=== PATIENT | male | born 1955 | race Caucasian/White ===

== ENCOUNTER 2020-10-29 08:40 | Outpatient (CLI) | payer MEDICARE, OTHER, SELFPAY ==
--- NOTE | ~2020-10-29 | XR_ITS ---
XR lumbar spine 2-3V DATE: 10/29/2020 09:04 INDICATION: Chronic lower thoracic and upper lumbar pain TECHNIQUE: AP, lateral, coned lateral lumbosacral views COMPARISON: None FINDINGS: Multilevel degenerative disc disease, moderate at L1-2, severe at L2-3 with prominent left bridging osteophyte, moderate at L3-4, L4-5 and L5-S1. Minimal retrolisthesis at L3-4 and L4-5. No fracture or bone destruction is evident. Included lower thoracic and lumbar pedicles are intact. Sacroiliac joints are normal. Status post cholecystectomy. IMPRESSION: Multilevel degenerative disc disease Reviewed, dictated and finalized at location B.
--- NOTE | ~2020-10-29 | XR_ITS ---
XR thoracic spine 2V DATE: 10/29/2020 09:04 INDICATION: Chronic lower thoracic and upper lumbar pain. Left flank pain. TECHNIQUE: AP, lateral, swimmer views COMPARISON: None FINDINGS: No fracture or dislocation or bone destruction. The thoracic pedicles are intact. Prominent degenerative disease of the cervical spine. Mild degenerative spurring of the upper thoracic spine. Diffuse idiopathic skeletal hyperostosis of t he lower thoracic spine. No fracture or bone destruction is evident. The thoracic pedicles are intact. No paraspinal soft tiss ue thickening. Status post cholecystectomy. IMPRESSION: Prominent degenerative disc disease of the cervical spine Mild degenerative spurring of the upper thoracic spine Diffuse idiopathic skeletal hyperostosis of the lower thoracic spine Reviewed, dictated and finalized at location B.
== END 2020-10-29 08:41 | disposition home or self-care (01) ==
LOC: CHSIMG 08:45
PROVIDERS: PCP Internal Medicine; Visit Provider Internal Medicine
DX: R10.9 Unspecified abdominal pain (principal); M54.9 Dorsalgia, unspecified
CPT/HCPCS: 72070; 72100

== ENCOUNTER 2020-11-03 14:54 | Outpatient (RCR) | payer MEDICARE, OTHER, SELFPAY ==
--- NOTE | 2020-11-03 17:29 | PTOPEVAL ---
Thank you for referring Mushtaq Morfin to [facility].? The patient is scheduled to be seen for therapy? ____x/week for ___ weeks. Please review, sign, date and return this plan of care MERI. I agree with and certify that the following plan of care is medically necessary. Referring Physician Date Admitting Provider: Attending Provider: Klaus Spring MD Referring Provider: *PT Outpatient Evaluation Start: 11/03/20 15:14 Freq: Status: Active Protocol: Document 11/03/20 15:00 [facility] (Rec: 11/03/20 16:03 [facility] [id number]) Therapy Assessment Status Assessment Status Assessment Status Evaluation Evaluation Information Problem Diagnosis LBP/ stenosis Onset 10/29/20 Additional Evaluation Detail oswestry = 34% functionally declined Subjective Information Mushtaq Morfin is a 65 year old Query Text:As Reported By Patient/ man with LBP which he reports Family started in 2005. His back pain is intermittent, but the length of pain present has lasted longer this time than any time before. No radiating pain is reported, and he states that the pain was of insidious onset. He was DC'd from PT in [place] to an [facility] last month. He is currenly taking a steroid dose pack of 21 doses. He has approximately 3 pills left. X rays were recently taken showing DDD. He reports that pain begins in lumbar spine and refers upwards to the right thoracic region. He wishes to return to golfing, but expresses some concern about reinjuring his L hip (a grade 2 lig strain) in additon to experiencing an increase in LBP. He reports needing to change positions from sitting to standing every hour to alleviate pain. He reports minimal pain with ambulation. Prior Level of Function Comments Additional Prior Level of Function He has only golfed 2x since Comments July when he used to golf 4x/week. He currently participates in
--- NOTE | 2020-12-07 09:41 | PCPTNOTE ---
12/07/20 - mr. gleason has not been to therapy since initial evaluation. he will be dc'd from skilled therapy services this date and all progress towards goals will be taken from his most recent evaluation/note.
== END 2020-11-03 16:23 | disposition home or self-care (01) ==
LOC: CHSPT 14:54
PROVIDERS: PCP Internal Medicine; Visit Provider Internal Medicine
DX: M54.5 Low back pain (principal); R26.89 Other abnormalities of gait and mobility
CPT/HCPCS: 97110; 97161

== ENCOUNTER 2020-11-04 07:14 | Outpatient (CLI) | payer MEDICARE, OTHER, SELFPAY ==
--- NOTE | ~2020-11-04 | MR_ITS ---
EXAMINATION: MR lumbar spine wo con DATE: 11/04/2020 12:03 INDICATION: Low back pain. TECHNIQUE: Magnetic resonance imaging (MRI) of the lumbar spine was performed without intravenous con trast. Sequences included sagittal T2-weighted FSE, sagittal T2-weighted FS FSE, and sagittal T1-weig hted FSE. The patient could not tolerate further imaging. COMPARISON: Lumbar spine radiographs 10/29/2020 FINDINGS: There is 3 mm retrolisthesis of L4 on L5. There is mild chronic anterior wedging of L4 vert ebral body. There is interbody fusion at L2-L3. There is moderately decreased disc height at L4-L5 an d L5-S1 with endplate remodeling. The distal spinal cord signal intensity is normal. The conus medull gelacio is at L1. The following disc levels are specifically discussed: L1-L2: The disc does not extend beyond the endplate margin. There is severe left facet joint osteoart hritis. There is mild left neural foraminal stenosis. There is no central canal stenosis. L2-L3: There is a right foraminal protrusion. There is no facet joint hypertrophy. There is mild righ t neural foraminal stenosis. There is no central canal stenosis. L3-L4: The disc is bulging and has an annular fissure. There is mild bilateral facet joint osteoarthr itis. There is mild bilateral neural foraminal stenosis. There is mild central canal stenosis. L4-L5: The disc is bulging and has an annular fissure. There is moderate right and severe left facet joint osteoarthritis. There is moderate bilateral neural foraminal stenosis. There is mild central ca nal stenosis. L5-S1: The disc is bulging. There is severe bilateral facet joint osteoarthritis. There is moderate b ilateral neural foraminal stenosis. There is mild central canal stenosis. IMPRESSION: 1. Moderate lumbar spondylosis. Reviewed, dictated and finalized at location B.
== END 2020-11-04 07:15 | disposition home or self-care (01) ==
LOC: CHSIMG 07:17
PROVIDERS: PCP Internal Medicine; Visit Provider Internal Medicine
DX: M54.5 Low back pain (principal)
CPT/HCPCS: 72148

== ENCOUNTER 2022-03-17 01:56 | Day surgery (SDC) | payer MEDICARE, OTHER, SELFPAY ==
[2022-03-01 13:34] VITALS: BMI 28.7
[2022-03-17 07:55] VITALS: BP 127/86; PULSE 77; RESP 18; TEMP 36.4; O2SAT 100
[2022-03-17] MEDS: LACTATED RINGERS 1,000 ML 150 ML IV CONT (08:07)
--- NOTE | 2022-03-17 08:17 | P.PNAN_ITS ---
Anes - Initial Pre Proc Eval Procedure: Operation Date: 03/17/22 08:30 Proposed Procedures p Esophagogastroduodenoscopy & Colonoscopy - Chito Do DO Date/Time: 03/17/22 08:17 Surgeon: Chito Do DO Pre Op Diagnosis: change bowel movements, dypepsia, fam hx colon ca Patient Data Age: 66 Gender: M Height: 1.8 m Weight: 94.9 kg Last Vital Signs Temp 97.5 F L 03/17/22 07:55 Pulse 77 03/17/22 07:55 Resp 18 03/17/22 07:55 BP 127/86 03/17/22 07:55 Pulse Ox 100 03/17/22 07:55 O2 Del Method Room Air 03/17/22 07:55 Allergies Allergy/AdvReac Type Severity Reaction Status Date / Time No Known Allergies Allergy Verified 03/17/22 07:54 Home Medications Medication Instructions Recorded Confirmed Type ascorbic acid (vitamin C) 1,000 mg 1 g PO DAILY 03/01/22 03/01/22 History tablet aspirin 81 mg tablet 81 mg PO DAILY 03/01/22 03/01/22 History celecoxib 200 mg capsule (Celebrex) 200 mg PO BID PRN Pain 03/01/22 03/01/22 History cholecalciferol (vitamin D3) 25 25 mcg PO DAILY 03/01/22 03/01/22 History mcg (1,000 unit) tablet (Vitamin D3) coQ10 (ubiquinol) 200 mg capsule 200 mg PO DAILY 03/01/22 03/01/22 History finasteride 1 mg tablet 1 mg PO DAILY 03/01/22 03/01/22 History glucosamine sulfate 750 mg tablet 1,500 mg PO DAILY 03/01/22 03/01/22 History krill oil 500 mg capsule 500 mg PO DAILY 03/01/22 03/01/22 History lisinopril 10 mg tablet 10 mg PO DAILY 03/01/22 03/01/22 History magnesium 200 mg tablet 400 mg PO DAILY 03/01/22 03/01/22 History rosuvastatin 20 mg tablet 20 mg PO DAILY 03/01/22 03/01/22 History tumeric 100 mg-reza 150 mg-olive 1 cap PO DAILY 03/01/22 03/01/22 History 50 mg-oreg 150 mg-caprylate capsule zinc 100 mg tablet 100 mg PO DAILY 03/01/22 03/01/22 History Patient hx anesthesia problems: none Family hx anesthesia problems: none Results Review: All pre-operative results and documents have been reviewed as part of the pre- operative evaluation. [facility] Past Medical History Medical History Arthritis of knee, left Arthritis of knee, right Social History Social History (System 01/28/22 @ 10:08 by Wilmer Rico) Smoking status: Former smoker Tobacco type: smokeless tobacco Smokeless tobacco user: chewing tobacco Alcohol intake: current Substance use type: does not use Living arrangements: with family Spiritual care concerns: No Anes - Eval Final PreProcedure Day of Procedure 03/17/22 08:17 Patient weight: normal Heart: regular rate and rhythm Lungs: clear to auscultation Airway: Mallampati scale class II Neurological: alert and oriented Last oral intake: >/= 8 hours ASA classification: III Emergent: no Anesthetic plan: proceed Anesthesia type and monitoring: general GIVS and standard monitoring Results Review: All pre-operative results and documents have been reviewed as part of the pre- operative evaluation. Informed Consent: The patient's anesthetic plan and its attendant risks and benefits were discussed with the patient/family/POA. Questions were solicited and answers provided to the satisfaction of the patient/family/POA.
--- NOTE | 2022-03-17 08:46 | PM.IMHP ---
H&P: HPI History of Present Illness Date/Time: 03/17/22 08:46 Chief Complaint: dyspepsia, family history of colon cancer Narrative: this is a 66-year-old man presents for EGD and colonoscopy. He has some occasional acid reflux. He also has a family history of colon cancer with 2 uncles. He denies any hematochezia or melena. He last had a colonoscopy 5 years ago which was normal. Review of Systems Review of Systems: All systems reviewed & are unremarkable except as noted in HPI and below Constitutional: Constitutional: Denies chills, Denies fever(s), Denies headache(s) and Denies weight loss Eyes: Eyes: Denies change in vision ENT: Denies dizziness, Denies headache(s), Denies neck mass and Denies throat swelling Cardiovascular: Cardiovascular: Denies chest pain, Denies lightheadedness and Denies dyspnea Respiratory: Respiratory: Denies cough, Denies dyspnea and Denies wheezing Gastrointestinal: Gastrointestinal: Denies abdominal pain, Denies change in bowel habits, Denies nausea and Denies vomiting Genitourinary: Genitourinary: Denies hematuria and Denies dysuria Musculoskeletal: Musculoskeletal: Reports as per HPI Integumentary/Breasts: Skin/Breast: Reports as per HPI Neurologic: Denies dizziness and Denies headache(s) Allergic/Immunologic: Allergic/Immunologic: Denies throat swelling and Denies wheezing [facility] Past Medical History Medical History Arthritis of knee, left Arthritis of knee, right Social History Social History (System 01/28/22 @ 10:08 by Wilmer Rico) Smoking status: Former smoker Tobacco type: smokeless tobacco Smokeless tobacco user: chewing tobacco Alcohol intake: current Substance use type: does not use Living arrangements: with family Spiritual care concerns: No Meds Home Medications and Allergies Home Medications Medication Instructions Recorded Confirmed Type ascorbic acid (vitamin C) 1,000 mg 1 g PO DAILY 03/01/22 03/01/22 History tablet aspirin 81 mg tablet 81 mg PO DAILY 03/01/22 03/01/22 History celecoxib 200 mg capsule (Celebrex) 200 mg PO BID PRN Pain 03/01/22 03/01/22 History cholecalciferol (vitamin D3) 25 25 mcg PO DAILY 03/01/22 03/01/22 History mcg (1,000 unit) tablet (Vitamin D3) coQ10 (ubiquinol) 200 mg capsule 200 mg PO DAILY 03/01/22 03/01/22 History finasteride 1 mg tablet 1 mg PO DAILY 03/01/22 03/01/22 History glucosamine sulfate 750 mg tablet 1,500 mg PO DAILY 03/01/22 03/01/22 History krill oil 500 mg capsule 500 mg PO DAILY 03/01/22 03/01/22 History lisinopril 10 mg tablet 10 mg PO DAILY 03/01/22 03/01/22 History magnesium 200 mg tablet 400 mg PO DAILY 03/01/22 03/01/22 History rosuvastatin 20 mg tablet 20 mg PO DAILY 03/01/22 03/01/22 History tumeric 100 mg-reza 150 mg-olive 1 cap PO DAILY 03/01/22 03/01/22 History 50 mg-oreg 150 mg-caprylate capsule zinc 100 mg tablet 100 mg PO DAILY 03/01/22 03/01/22 History Allergies Allergy/AdvReac Type Severity Reaction Status Date / Time No Known Allergies Allergy Verified 03/17/22 07:54 Vital Signs Vital Signs - 24 hr 03/17/22 07:55 Temperature 36.4 C L Pulse Rate 77 Respiratory Rate 18 Blood Pressure 127/86 Pulse Oximetry 100 Oxygen Delivery Room Air Exam Const: General: no acute distress and alert Orientation/consciousness: patient oriented x3 HENMT: Head: normocephalic and atraumatic Ears: hearing grossly normal bilaterally Face/Nose/Sinus: Normal nares present Mouth: Yes Normal oral and palatal mucosa present Eyes: Periorbital: periorbital findings normal Sclera: sclerae normal EOM: EOMs intact bilaterally Neck: Neck: normal visual inspection, no lymphadenopathy and trachea midline Chest: Chest palpation & inspection: normal inspection of the chest Resp: Effort & Inspection: normal respiratory effort Auscultation: clear to auscultation bilaterally Cardio: Jugular venous distension: no JV
--- NOTE | 2022-03-17 09:02 | SUR.OPER ---
EGD END AT 912. COLONOSCOPY START AT 919.
[2022-03-17 09:40] VITALS: BP 116/70; PULSE 74; RESP 20; O2SAT 97
[2022-03-17 09:50] VITALS: BP 110/76; PULSE 66; RESP 18; O2SAT 100
[2022-03-17 10:00] VITALS: BP 122/78; PULSE 68; RESP 19; O2SAT 100
== END 2022-03-17 10:13 | disposition home or self-care (01) ==
PROVIDERS: PCP Internal Medicine; Visit Provider Surgery
PROC: 0DJ08ZZ Inspection of Upper Intestinal Tract, Via Natural or Artificial Opening Endoscopic (ICD-10-PCS; CPT 43235; principal; 2022-03-17 08:30)
DX: Z12.11 Encounter for screening for malignant neoplasm of colon (principal); K22.70 Barrett's esophagus without dysplasia; Z80.0 Family history of malignant neoplasm of digestive organs; K21.9 Gastro-esophageal reflux disease without esophagitis; Z79.82 Long term (current) use of aspirin; K57.30 Diverticulosis of large intestine without perforation or abscess without bleeding; K30 Functional dyspepsia; K25.3 Acute gastric ulcer without hemorrhage or perforation; M19.90 Unspecified osteoarthritis, unspecified site; Z87.891 Personal history of nicotine dependence; R19.4 Change in bowel habit
CPT/HCPCS: 43239; G0105; 87081; 88305; 88342; J2704; J7120

== ENCOUNTER 2022-12-22 00:44 | Day surgery (SDC) | payer MEDICARE, OTHER, SELFPAY ==
[2022-11-15 14:38] VITALS: BMI 28.0
[2022-12-22 06:55] VITALS: BP 121/81; PULSE 63; RESP 18; TEMP 36.3; O2SAT 100; BMI 28.1
[2022-12-22] MEDS: LACTATED RINGERS 1,000 ML 150 ML IV CONT (07:06)
--- NOTE | 2022-12-22 07:58 | WPDANESEPPF ---
Anes - Initial Pre Proc Eval Procedure: Operation Date: 12/22/22 08:00 Proposed Procedures p Esophagogastroduodenoscopy - Chito Do DO Date/Time: 12/22/22 07:58 Surgeon: Chito Do DO Pre Op Diagnosis: Gastritis Patient Data Age: 67 Gender: M Height: 1.8 m Weight: 91.6 kg Last Vital Signs Temp 97.3 F L 12/22/22 06:55 Pulse 63 12/22/22 06:55 Resp 18 12/22/22 06:55 BP 121/81 12/22/22 06:55 Pulse Ox 100 12/22/22 06:55 O2 Del Method Room Air 12/22/22 06:55 Allergies Allergy/AdvReac Type Severity Reaction Status Date / Time No Known Allergies Allergy Verified 03/17/22 07:54 Home Medications Medication Instructions Recorded Confirmed Type ascorbic acid (vitamin C) 1,000 mg 1 g PO DAILY 03/01/22 11/15/22 History tablet aspirin 81 mg tablet 81 mg PO DAILY 03/01/22 11/15/22 History celecoxib 200 mg capsule (Celebrex) 200 mg PO BID PRN Pain 03/01/22 11/15/22 History cholecalciferol (vitamin D3) 25 25 mcg PO DAILY 03/01/22 11/15/22 History mcg (1,000 unit) tablet (Vitamin D3) coQ10 (ubiquinol) 200 mg capsule 200 mg PO DAILY 03/01/22 11/15/22 History finasteride 1 mg tablet 1 mg PO DAILY 03/01/22 11/15/22 History glucosamine sulfate 750 mg tablet 1,500 mg PO DAILY 03/01/22 11/15/22 History krill oil 500 mg capsule 500 mg PO DAILY 03/01/22 11/15/22 History lisinopril 10 mg tablet 10 mg PO DAILY 03/01/22 11/15/22 History magnesium 200 mg tablet 400 mg PO DAILY 03/01/22 11/15/22 History rosuvastatin 20 mg tablet 20 mg PO DAILY 03/01/22 11/15/22 History tumeric 100 mg-reza 150 mg-olive 1 cap PO DAILY 03/01/22 11/15/22 History 50 mg-oreg 150 mg-caprylate capsule zinc 100 mg tablet 100 mg PO DAILY 03/01/22 11/15/22 History omeprazole 20 mg capsule,delayed 20 mg PO DAILY #30 caps 04/07/22 11/15/22 Rx release calcium polycarbophil 625 mg 1,250 mg PO DAILY 11/15/22 11/15/22 History tablet (FiberCon) testosterone enanthate 75 mg/0.5 75 mg subcut WEEKLY 11/15/22 11/15/22 History mL subcutaneous auto-injector (Xyosted) Patient hx anesthesia problems: none Family hx anesthesia problems: none Results Review: All pre-operative results and documents have been reviewed as part of the pre-operative evaluation. [facility] Past Medical History Medical History Arthritis of knee, left Arthritis of knee, right Social History Social History (System 01/28/22 @ 10:08 by Wilmer Rico) Smoking status: Never smoker Tobacco type: smokeless tobacco Smokeless tobacco user: chewing tobacco Alcohol intake: current Drinks per week: 10 Substance use type: does not use Living arrangements: with family Spiritual care concerns: No Anes - Eval Final PreProcedure Day of Procedure 12/22/22 07:58 Patient weight: normal Heart: regular rate and rhythm Lungs: clear to auscultation Airway: Mallampati scale class II Neurological: alert and oriented Last oral intake: >/= 8 hours ASA classification: III Emergent: no Anesthetic plan: proceed Anesthesia type and monitoring: general GIVS and standard monitoring Results Review: All pre-operative results and documents have been reviewed as part of the pre-operative evaluation. Informed Consent: The patient's anesthetic plan and its attendant risks and benefits were discussed with the patient/family/POA. Questions were solicited and answers provided to the satisfaction of the patient/family/POA.
--- NOTE | 2022-12-22 08:03 | PM.IMHP ---
H&P: HPI History of Present Illness Date/Time: 12/22/22 08:03 Chief Complaint: Guallpa's esophagitis Narrative: This is a 67-year-old man who presents for a follow-up EGD. He had an EGD last year which showed evidence of a gastric ulcer and esophagitis. Biopsy showed evidence of Guallpa's esophagitis. He reports minimal if any heartburn or acid reflux. He denies any other changes. Review of Systems Review of Systems: All systems reviewed & are unremarkable except as noted in HPI and below Constitutional: Constitutional: Denies chills, Denies fever(s), Denies headache(s) and Denies weight loss Eyes: Eyes: Denies change in vision ENT: Denies dizziness, Denies headache(s), Denies neck mass and Denies throat swelling Cardiovascular: Cardiovascular: Denies chest pain, Denies lightheadedness and Denies dyspnea Respiratory: Respiratory: Denies cough, Denies dyspnea and Denies wheezing Gastrointestinal: Gastrointestinal: Denies abdominal pain, Denies change in bowel habits, Denies nausea and Denies vomiting Genitourinary: Genitourinary: Denies hematuria and Denies dysuria Musculoskeletal: Musculoskeletal: Reports as per HPI Integumentary/Breasts: Skin/Breast: Reports as per HPI Neurologic: Denies dizziness and Denies headache(s) Allergic/Immunologic: Allergic/Immunologic: Denies throat swelling and Denies wheezing [facility] Past Medical History Medical History Arthritis of knee, left Arthritis of knee, right Social History Social History (System 01/28/22 @ 10:08 by Wilmer Rico) Smoking status: Never smoker Tobacco type: smokeless tobacco Smokeless tobacco user: chewing tobacco Alcohol intake: current Drinks per week: 10 Substance use type: does not use Living arrangements: with family Spiritual care concerns: No Meds Home Medications and Allergies Home Medications Medication Instructions Recorded Confirmed Type ascorbic acid (vitamin C) 1,000 mg 1 g PO DAILY 03/01/22 11/15/22 History tablet aspirin 81 mg tablet 81 mg PO DAILY 03/01/22 11/15/22 History celecoxib 200 mg capsule (Celebrex) 200 mg PO BID PRN Pain 03/01/22 11/15/22 History cholecalciferol (vitamin D3) 25 25 mcg PO DAILY 03/01/22 11/15/22 History mcg (1,000 unit) tablet (Vitamin D3) coQ10 (ubiquinol) 200 mg capsule 200 mg PO DAILY 03/01/22 11/15/22 History finasteride 1 mg tablet 1 mg PO DAILY 03/01/22 11/15/22 History glucosamine sulfate 750 mg tablet 1,500 mg PO DAILY 03/01/22 11/15/22 History krill oil 500 mg capsule 500 mg PO DAILY 03/01/22 11/15/22 History lisinopril 10 mg tablet 10 mg PO DAILY 03/01/22 11/15/22 History magnesium 200 mg tablet 400 mg PO DAILY 03/01/22 11/15/22 History rosuvastatin 20 mg tablet 20 mg PO DAILY 03/01/22 11/15/22 History tumeric 100 mg-reza 150 mg-olive 1 cap PO DAILY 03/01/22 11/15/22 History 50 mg-oreg 150 mg-caprylate capsule zinc 100 mg tablet 100 mg PO DAILY 03/01/22 11/15/22 History omeprazole 20 mg capsule,delayed 20 mg PO DAILY #30 caps 04/07/22 11/15/22 Rx release calcium polycarbophil 625 mg 1,250 mg PO DAILY 11/15/22 11/15/22 History tablet (FiberCon) testosterone enanthate 75 mg/0.5 75 mg subcut WEEKLY 11/15/22 11/15/22 History mL subcutaneous auto-injector (Xyosted) Allergies Allergy/AdvReac Type Severity Reaction Status Date / Time No Known Allergies Allergy Verified 03/17/22 07:54 Vital Signs Vital Signs - 24 hr 12/22/22 06:55 Temperature 36.3 C L Pulse Rate 63 Respiratory Rate 18 Blood Pressure 121/81 Pulse Oximetry 100 Oxygen Delivery Room Air Exam Const: General: no acute distress and alert Orientation/consciousness: patient oriented x3 HENMT: Head: normocephalic and atraumatic Ears: hearing grossly normal bilaterally Face/Nose/Sinus: Normal nares present Mouth: Yes Normal oral and palatal mucosa present Eyes: Periorbital: periorbital findings normal Sclera: scl
[2022-12-22 08:27] VITALS: BP 93/65; PULSE 72; RESP 18; O2SAT 100
[2022-12-22 08:37] VITALS: BP 98/55; PULSE 68; RESP 18; O2SAT 100
[2022-12-22 08:57] VITALS: BP 109/78; PULSE 66; RESP 18; O2SAT 100
== END 2022-12-22 08:55 | disposition home or self-care (01) ==
PROVIDERS: PCP Internal Medicine; Visit Provider Surgery
PROC: 0DJ08ZZ Inspection of Upper Intestinal Tract, Via Natural or Artificial Opening Endoscopic (ICD-10-PCS; CPT 43235; principal; 2022-12-22 08:00)
DX: Z09 Encounter for follow-up examination after completed treatment for conditions other than malignant neoplasm (principal); K31.7 Polyp of stomach and duodenum; Z87.19 Personal history of other diseases of the digestive system; Z79.82 Long term (current) use of aspirin; F17.220 Nicotine dependence, chewing tobacco, uncomplicated; Z79.890 Hormone replacement therapy
CPT/HCPCS: 43239; 88305; J2704; J7120

== ENCOUNTER 2024-12-11 09:37 | Outpatient (CLI) | payer MEDICARE, OTHER, SELFPAY ==
--- OUTSIDE RECORDS SUMMARY | 2024-12-11 09:49 | XMS_ITS | Patient Health Record ---
Author Organization [facility] Address [address] [facility] [address] [place] [address] Care Team Providers Care Paper Testing Supervisor Name Role Phone MicheleLois Primary Care Provider Karla Mills Unavailable [phone] Allergies Allergen (clinical drug ingredient) Drug/Non Drug Allergy documented on EMR Reaction Allergy Type Onset Date Status Penicillin upset stomach Drug Allergy Ac tive Results Component Value Reference Range Flag Notes Fecal Immunoassay Test (FIT) (Commercial) Reviewed date:11/12/2024 06:23:49 PM Interpretation: Performing Lab:[facility]-[id number] Mike Brooksca, [id number] DR. Terri Barr Notes/Report: FASTING: UNKNOWN FECAL GLOBIN BY IMMUNOCHEMISTRY SEE NOTE FECAL GLOBIN BY IMMUNOCHEMISTRY Micro Number: [id number] Test Status: Final Specimen Source: Insu () fobt test card Specimen Quality: Adequate Fecal Globin: Not Detected Reference Range: Not Detected NOTE: Approved collection includes sample of toilet water adjacent to stool. Other methods of collection such as stool transferred from diaper, bedpan, or commode to toilet water may lead to inaccurate results. TSH W/REFLEX TO FT4 Reviewed date:07/18/2024 09:04:18 AM Interpretation: Performing Lab:[facility]-Oybac1727 Sarah Wilson [id number] Dennis Vines MD Notes/Report: 0; 0; 0; 0; 0; 0 FASTING:YES FASTING: YES TSH W/REFLEX TO FT4 1.89 0.40-4.50 mIU/L N PSA, Total Reviewed date:07/18/2024 09:04:18 AM Interpretation: Performing Lab:[facility]-Nrrdw2130 Sarah Wilson [id number] Dennis Vines MD Notes/Report: 0; 0; 0; 0; 0; 0 FASTING:YES FASTING: YES PSA, TOTAL 0.91 < OR = 4.00 ng/mL N The total PSA value from this assay system is standardized against the WHO standard. The test result will be approximately 20% lower when compared to the equimolar-standardized total PSA (Kenney Scipio). Comparison of serial PSA results should be interpreted with this fact in mind. This test was performed using the Siemens chemiluminescent method. Values obtained from different assay methods cannot be used interchangeably. PSA levels, regardless of value, should not be interpreted as absolute evidence of the presence or absence of disease. Lipid Panel Reviewed date:07/18/2024 09:04:18 AM Interpretation: Performing Lab:[facility] CarLakhwinderXxryn6209 Sarah Wilson [id number] Dennis Vines MD Notes/Report: 0; 0; 0; 0; 0; 0 FASTING:YES FASTING: YES CHOLESTEROL, TOTAL 130 <200 mg/dL N HDL CHOLESTEROL 53 > OR = 40 mg/dL N TRIGLYCERIDES 153 <150 mg/dL H LDL-CHOLESTEROL 53 N Reference range: <100 Desirable range <100 mg/dL for primary prevention; <70 mg/dL for patients with CHD or diabetic patients with > or = 2 CHD risk factors. LDL-C is now calculated using the Ang-Lupe calculation, which is a validated novel method providing better accuracy than the Friedewald equation in the estimation of LDL-C. Ang SS et al. GISELL. 2013;310(19): 1248-7693 (http://education.[employer]E Systems/faq/WDK680) CHOL/HDLC RATIO 2.5 <5.0 (calc) N NON HDL CHOLESTEROL 77 <130 mg/dL (calc) N For patients with diabetes plus 1 major ASCVD risk factor, treating to a non-HDL-C goal of <100 mg/dL (LDL-C of <70 mg/dL) is considered a therapeutic option. HEMOGLOBIN A1c Reviewed date:07/18/2024 09:04:18 AM Interpretation: Performing Lab:[facility]-Shojc4445 Sarah Wilson, [id number] Dennis Vines MD Notes/Report: 0; 0; 0; 0; 0; 0 FASTING:YES FASTING: YES HEMOGLOBIN A1c 5.4 <5.7 % of total Hgb N For the purpose of screening for the presence of diabetes: <5.7% Consistent with the absence of diabetes 5.7-6.4% Consistent with increased risk for diabetes (prediabetes) > or =6.5% Consistent with diabetes This assay result is consistent with a decreased risk of diabetes. Currently, no consensus exists regarding use of hemoglobin A1c for diagnosis of diabetes in children. According to [place] [employer] Association (ADA) guidelines, hemoglobin A1c <7.0% represents optimal control in non- diabetic patients. Different metrics may apply to specific patient populations. Standards of Medical Care in Diabetes(ADA). [facility] Reviewed date:07/18/2024 09:04:18 AM Interpretation: Performing Lab:[facility]-Qwmwi7698 Sarah Wilson, [id number] Dennis Vines MD Notes/Report: 0; 0; 0; 0; 0; 0 FASTING:YES FASTING: YES GLUCOSE 95 65-99 mg/dL N Fasting reference interval UREA NITROGEN (BUN) 17 7-25 mg/dL N CREATININE 1.21 0.70-1.28 mg/dL N EGFR 64 > OR = 60 mL/min/1.73m2 N BUN/CREATININE RATIO SEE NOTE: 6-22 (calc) Not Reported: BUN and Creatinine are within reference range. SODIUM 136 135-146 mmol/L N POTASSIUM 4.7 3.5-5.3 mmol/L N CHLORIDE 98 98-110 mmol/L N CARBON DIOXIDE 30 20-32 mmol/L N CALCIUM 10.0 8.6-10.3 mg/dL N PROTEIN, TOTAL 7.1 6.1-8.1 g/dL N ALBUMIN 4.5 3.6-5.1 g/dL N GLOBULIN 2.6 1.9-3.7 g/dL (calc) N ALBUMIN/GLOBULIN RATIO 1.7 1.0-2.5 (calc) N BILIRUBIN, TOTAL 0.7 0.2-1.2 mg/dL N ALKALINE PHOSPHATASE 47 35-144 U/L N AST 20 10-35 U/L N ALT 22 9-46 U/L N CBC w/Differential (Peripher al Smear) Reviewed date:07/18/2024 09:04:18 AM Interpretation: Performing Lab:[facility]-[id number] Sarah Sylwia Wilson, [id number] Dennis Vines MD Notes/Report: 0; 0; 0; 0; 0; 0 FASTING:YES FASTING: YES WHITE BLOOD CELL COUNT 4.6 3.8-10.8 Thousand/uL N RED BLOOD CELL COUNT 5.71 4.20-5.80 Million/uL N HEMOGLOBIN 17.0 13.2-17.1 g/dL N HEMATOCRIT 51.9 38.5-50.0 % H MCV 90.9 80.0-100.0 fL N MCH 29.8 27.0-33.0 pg N MCHC 32.8 32.0-36.0 g/dL N For adults, a slight decrease in the calculated MCHC value (in the range of 30 to 32 g/dL) is most likely not clinically significant; however, it should be interpreted with caution in correlation with other red cell parameters and the patient's clinical condition. RDW 14.2 11.0-15.0 % N PLATELET COUNT 224 140-400 Thousand/uL N MPV 9.2 7.5-12.5 fL N ABSOLUTE NEUTROPHILS 3353 0846-9057 cells/uL N ABSOLUTE LYMPHOCYTES 213 278-5461 cells/uL L ABSOLUTE MONOCYTES 538 200-950 cells/uL N ABSOLUTE EOSINOPHILS 138 15-500 cells/uL N ABSOLUTE BASOPHILS 51 0-200 cells/uL N NEUTROPHILS 72.9 N LYMPHOCYTES 11.3 N MONOCYTES 11.7 N EOSINOPHILS 3.0 N BASOPHILS 1.1 N CMP Reviewed date:05/24/2024 01:16:11 PM Interpretation: Performing Lab:[facility]-Nplgaf09586 [facility], [id number] Norris Xie MD Notes/Report: Patient Report History copied from and originally reported to client [id number] in site ([facility]) GLUCOSE 86 65-99 mg/dL N Fasting reference interval UREA NITROGEN (BUN) 20 7-25 mg/dL N CREATININE 1.50 0.70-1.28 mg/dL H EGFR 50 > OR = 60 mL/min/1.73m2 L BUN/CREATININE RATIO 13 6-22 (calc) N SODIUM 137 135-146 mmol/L N POTASSIUM 4.9 3.5-5.3 mmol/L N CHLORIDE 100 98-110 mmol/L N CARBON DIOXIDE 26 20-32 mmol/L N CALCIUM 9.7 8.6-10.3 mg/dL N PROTEIN, TOTAL 7.1 6.1-8.1 g/dL N ALBUMIN 4.3 3.6-5.1 g/dL N GLOBULIN 2.8 1.9-3.7 g/dL (calc) N ALBUMIN/GLOBULIN RATIO 1.5 1.0-2.5 (calc) N BILIRUBIN, TOTAL 0.8 0.2-1.2 mg/dL N ALKALINE PHOSPHATASE 44 35-144 U/L N AST 20 10-35 U/L N ALT 18 9-46 U/L N CBC w/Differential (Peripher al Smear) Reviewed date:05/24/2024 01:15:51 PM Interpretation: Performing Lab:[facility]-[id number] Aditya Jones, [id number] Norris Xie MD Notes/Report: Patient Report History copied from and originally reported to client [id number] in site ([facility]) WHITE BLOOD CELL COUNT 5.8 3.8-10.8 Thousand/uL N RED BLOOD CELL COUNT 5.83 4.20-5.80 Million/uL H HEMOGLOBIN 17.1 13.2-17.1 g/dL N HEMATOCRIT 54.3 38.5-50.0 % H MCV 93.1 80.0-100.0 fL N MCH 29.3 27.0-33.0 pg N MCHC 31.5 32.0-36.0 g/dL L For adults, a slight decrease in the calculated MCHC value (in the range of 30 to 32 g/dL) is most likely not clinically significant; however, it should be interpreted with caution in correlation with other red cell parameters and the patient's clinical condition. RDW 12.1 11.0-15.0 % N PLATELET COUNT 275 140-400 Thousand/uL N MPV 9.8 7.5-12.5 fL N ABSOLUTE NEUTROPHILS 4286 7599-3949 cells/uL N ABSOLUTE LYMPHOCYTES 976 420-6914 cells/uL L ABSOLUTE MONOCYTES 568 200-950 cells/uL N ABSOLUTE EOSINOPHILS 168 15-500 cells/uL N ABSOLUTE BASOPHILS 70 0-200 cells/uL N NEUTROPHILS 73.9 N LYMPHOCYTES 12.2 N MONOCYTES 9.8 N EOSINOPHILS 2.9 N BASOPHILS 1.2 N HEMOGLOBIN A1c Reviewed date:05/24/2024 01:16:01 PM Interpretation: Performing Lab:[facility]IP[facility], [facility]-[id number] Aditya Reilly, [id number] Norris Xie MD Notes/Report: Patient Report History copied from and originally reported to client [id number] in site ([facility]) HEMOGLOBIN A1c 5.6 <5.7 % of total Hgb N For the purpose of screening for the presence of diabetes: <5.7% Consistent with the absence of diabetes 5.7-6.4% Consistent with increased risk for diabetes (prediabetes) > or =6.5% Consistent with diabetes This assay result is consistent with a decreased risk of diabetes. Currently, no consensus exists regarding use of hemoglobin A1c for diagnosis of diabetes in children. According to [place] [employer] (ADA) guidelines, hemoglobin A1c <7.0% represents optimal control in non- diabetic patients. Different metrics may apply to specific patient populations. Standards of Medical Care in Diabetes(ADA). CBC w/Differential (Peripher al Smear) Reviewed date:05/24/2024 02:07:29 PM Interpretation: Performing Lab: Notes/Report: WBC 5.0 RBC 5.83 NIGH HEMOGLOBIN 17.2 HIGH HEMATOCRIT 52.7 HIGH MCV 90.4 PLATELET COUNT 215 MCH 29.5 MCHC 32.6 MPV 9.4 ABSOLUTE LYMPHS 505 LOW ABSOLUTE MONOCYTES 505 ABSOLUTE NEUTROPHILS 3800 ABSOLUTE EOS 140 ABSOLUTE BASOPHILS 50 PSA, TOTAL Reviewed date:05/24/2024 01:53:53 PM Interpretation: Performing Lab: Notes/Report: PSA, Total 0.82 Vitamin D 25 Hydroxy LC-MS/M S Reviewed date:05/24/2024 01:46:53 PM Interpretation: Performing Lab: Notes/Report: Vitamin D 25 Hydroxy by LC-MS/MS 55 CMP Reviewed date:05/24/2024 02:03:59 PM Interpretation: Performing Lab: Notes/Report: SODIUM 138 POTASSIUM 4.6 CHLORIDE 102 GLUCOSE 92 CALCIUM 9.6 BUN 20 Carbon Dioxide, Total 30 ALKALINE PHOSPHATASE 48 BILIRUBIN, TOTAL 0.6 ALBUMIN 4.4 PROTEIN, TOTAL 6.9 A/G Ratio 1.8 BUN/Creatinine Ratio Within REF Range Globulin, Total 2.5 Bilirubin, Total, Serum 0.6 HS CRP Reviewed date:05/24/2024 01:48:20 PM Interpretation: Performing Lab: Notes/Report: HS CRP 2.5 Lipid Panel Reviewed date:05/24/2024 01:44:30 PM Interpretation: Performing Lab: Notes/Report: CHOLESTEROL, Total 121 HDL 53 LDL-CHOLESTEROL 49 TRIGLYCERIDE 106 RISK/CHOL/HDL RATIO 2.3 NON HDL CHOLESTEROL 68 TSH W/REFLEX TO FT4 Reviewed date:05/24/2024 01:47:37 PM Interpretation: Performing Lab: Notes/Report: TSH W/REFLEX TO FT4 2.20 HEMOGLOBIN A1c Reviewed date:05/24/2024 01:45:17 PM Interpretation: Performing Lab: Notes/Report: Hemoglobin A1c 5.6 URINALYSIS, COMPLETE W/REFLE X TO CULTURE Reviewed date:05/24/2024 01:53:06 PM Interpretation: Performing Lab: Notes/Report: COLOR Yellow APPEARANCE Clear BILIRUBIN Negative KETONES Negative SPECIFIC GRAVITY 1.023 OCCULT BLOOD Negative PH 6.0 PROTEIN Negative NITRITE Negative LEUKOCYTE ESTERASE Negative WBC NONE SEEN RBC 0-2 SQUAMOUS EPITHELIAL CELLS NONE SEEN BACTERIA NONE SEEN GLUCOSE NEGATIVE GLUCOSE Reviewed date:05/24/2024 01:49:08 PM Interpretation: Performing Lab: Notes/Report: GLUCOSE 92 SPECIMEN INTEGRITY COMPROMIS ED Reviewed date:05/24/2024 01:15:41 PM Interpretation: Performing Lab:Jessica QUESADA-[id number] [facility], [id number] Norris Xie MD Notes/Report: Patient Report History copied from and originally reported to client [id number] in site ([facility]) SPECIMEN INTEGRITY COMPROMISED Whole blood, unspun or partially spun gel barrier tube was received more than 6 hours since collection. A false elevation of K, Phos and LD as well as a false decrease in glucose may occur due to prolonged contact with red cells. SPEP Reviewed date:07/29/2024 05:07:24 PM Interpretation: Performing Lab:Jessica [facility]WE[facility]-Zinkn4378 Sarah Wilson, [id number] Dennis Vines MD Notes/Report: 0; 0; 0; 0; 0; 0 PROTEIN, TOTAL 6.7 6.1-8.1 g/dL N ALBUMIN 4.0 3.8-4.8 g/dL N ALPHA 1 GLOBULIN 0.3 0.2-0.3 g/dL N ALPHA 2 GLOBULIN 0.7 0.5-0.9 g/dL N BETA 1 GLOBULIN 0.4 0.4-0.6 g/dL N BETA 2 GLOBULIN 0.4 0.2-0.5 g/dL N GAMMA GLOBULIN 0.9 0.8-1.7 g/dL N INTERPRETATION Normal Serum Protein Electrophoresis Pattern. No abnormal protein bands (M-protein) detected. CBC w/Differential (Peripher al Smear) Reviewed date:07/29/2024 05:07:24 PM Interpretation: Performing Lab:[facility]-Oafaa9269 Sarah Wilson, [id number] Dennis Vines MD Notes/Report: 0; 0; 0; 0; 0; 0 WHITE BLOOD CELL COUNT 6.0 3.8-10.8 Thousand/uL N RED BLOOD CELL COUNT 5.63 4.20-5.80 Million/uL N HEMOGLOBIN 16.9 13.2-17.1 g/dL N HEMATOCRIT 51.1 38.5-50.0 % H MCV 90.8 80.0-100.0 fL N MCH 30.0 27.0-33.0 pg N MCHC 33.1 32.0-36.0 g/dL N For adults, a slight decrease in the calculated MCHC value (in the range of 30 to 32 g/dL) is most likely not clinically significant; however, it should be interpreted with caution in correlation with other red cell parameters and the patient's clinical condition. RDW 14.1 11.0-15.0 % N PLATELET COUNT 254 140-400 Thousand/uL N MPV 9.2 7.5-12.5 fL N ABSOLUTE NEUTROPHILS 4662 6830-4233 cells/uL N ABSOLUTE LYMPHOCYTES 729 263-3588 cells/uL L ABSOLUTE MONOCYTES 528 200-950 cells/uL N ABSOLUTE EOSINOPHILS 120 15-500 cells/uL N ABSOLUTE BASOPHILS 60 0-200 cells/uL N NEUTROPHILS 77.7 N LYMPHOCYTES 10.5 N MONOCYTES 8.8 N EOSINOPHILS 2.0 N BASOPHILS 1.0 N VITAMIN B12/FOLATE, SERUM PA JAILYN Reviewed date:07/29/2024 05:07:24 PM Interpretation: Performing Lab:[facility] HospitalXeecw8780 Sarah Wilson, LgznoYJ[address] Dennis Vines MD Notes/Report: 0; 0; 0; 0; 0; 0 VITAMIN B12 189 237-7268 pg/mL N FOLATE, SERUM 22.1 N Reference Range Low: <3.4 Borderline: 3.4-5.4 Normal: >5.4 KAPPA/LAMBDA LIGHT CHAINS FR EE WITH RATIO, SERUM Reviewed date:07/29/2024 05:07:24 PM Interpretation: Performing Lab:[facility] Car[facility] HospitalLczch4661 Sarah Wilson, PqoeiCP[address] Dennis Vines MD Notes/Report: 0; 0; 0; 0; 0; 0 KAPPA LIGHT CHAIN, FREE, SERUM 21.5 3.3-19.4 mg/L H LAMBDA LIGHT CHAIN, FREE, SERUM 17.0 5.7-26.3 mg/L N KAPPA/LAMBDA LIGHT CHAINS FREE WITH RATIO, SERUM 1.26 0.26-1.65 N Free kappa/lambda ratio in serum of normal individuals is 0.26-1.65. Excess production of free kappa or lambda chains can alter this ratio. Monoclonal free light chains are found in serum of patients with multiple myeloma, Waldenstrom's macroglobulinemia, mu-heavy chain disease, primary amyloidosis, light chain deposition disease, monoclonal gammopathy of undetermined significance, and lymphoproliferative disorders. Measurement of free light chain concentration in serum is useful for diagnosis, prognosis, monitoring disease activity and following response to therapy of these disorders. IMMUNOGLOBULINS, IgG, IgA, I gM Reviewed date:07/29/2024 05:07:24 PM Interpretation: Performing Lab:[facility]IE [facility]-Jxoym1559 Sarah Wilson, [id number] Dennis Vines MD Notes/Report: 0; 0; 0; 0; 0; 0 IMMUNOGLOBULIN A 288 70-320 mg/dL N IMMUNOGLOBULIN G 153 502-0433 mg/dL N IMMUNOGLOBULIN M 65 50-300 mg/dL N IMMUNOFIXATION, SERUM Reviewed date:07/29/2024 05:07:24 PM Interpretation: Performing Lab:M[facility]IE [facility] Fix My CarZfonx9176 Sarah Wilson, DmgtvQM[address] Dennis Vines MD Notes/Report: 0; 0; 0; 0; 0; 0 CY INTERPRETATION No monoclonal immunoglobulin detected. Reason For Referral Reason lymphopenia, abnorma l serum light chain; please give additional recommendations BENY WALL Diagnosis 1 Lymphopenia (D72.810 ) Referral Organization [facility] Care Referring Provider First Name Lois Referring Provider Last Name Michele Referring Provider Speciality [facility] josue Referred Provider Beny Wall Referred Provider Specialty Hematology/O ncology Referral Priority Routine Medications Medication SIG (Take, Route, Frequency, Duration) Notes Start Date End Date Status Lisinopril 20 MG Tablet TAKE 1 TABLET BY MOUTH EVERY DAY; Duration: 90 Active Multivitamin Centrum Silver Ac tive Finasteride 1 MG Tablet 1 tablet Orally Once a day Active Probiotic 1-250 BILLION-MG Capsule as directed Orally Act adry Sertraline HCl 100 MG Tablet 1 tablet Orally Once a day; Duration: 90 days 06/14/2024 Active Fiber Active Aspirin 81 81 MG Tablet Chewable 1 tablet Orally Once a day Active Zinc 100 MG Tablet 1 tablet Orally Once a day Not-Taking/GA N Rosuvastatin Calcium 20 MG Tablet TAKE 1 TABLET BY MOUTH EVERY DAY FOR 90 DAYS; Duration: 90 Active Xyosted 75 MG/0.5ML Solution Auto-injector as directed Subcutaneous every other week Active Vitamin C 1000 MG Tablet 1 tablet Orally Once a day Not-Taking/GA N Omeprazole 20 MG Capsule Delayed Release TAKE 1 CAPSULE BY MOUTH 30 MINUTES BEFORE MORNING MEAL EVERY DAY FOR 30 DAYS; Duration: 90 Active Zolpidem Tartrate 10 MG Tablet 1 tablet at bedtime as needed Orally Once a day PRN Active Milk Thistle Not-Bruce ing/GA N Semaglutide compound 05/24/2024 Active Krill Oil 500 MG Capsule as directed Orally Not-Takin g/GA N Celecoxib 200 MG Capsule 1 capsule with food Orally Once a day PRN Active Turmeric 1053 MG Tablet as directed Orally Not-Takin g/GA N Immunizations Vaccine Route Administration Date Status Comme nts Abrexvy, RSV Unknown 04/03/2023 Administered Afluria Quadrivalent Unknown 03/12/2021 Administered COVID-19 PFIZER Unknown 07/28/2020 Administered COVID-19 PFIZER Unknown 08/18/2020 Administered COVID-19 PFIZER Unknown 03/31/2021 Administered Flu Quad Unknown 03/17/2023 Administered FLUARIX Unknown 03/26/2024 Administered Pneumococcal conjugate PCV 13 Unknown 11/27/2019 Administered Pneumococcal polysaccharide PPV23 Unknown 11/26/2018 Administered Shingrix Unknown 04/20/2018 Administered administered elsewhere//pd Shingrix Unknown 2018 Administered administered elsewhere//pd Social History Tobacco Use: Social History Observation Description Date Details (start date - stop date) Never Smoker NA - NA Social History Social Determinants Social Info Question Answer Notes PRAPARE What is your current housing situation? I have housing Are you worried about losing your housing? No What is the highest level of school that you have finished? More than high school What is your current work situation? Oth erwise unemployed but not seeking work (ex. student, retired, disabled, unpaid primary lawn care worker) In the past year, have you o r any family members you live with been unable to get any of the following when it was really needed? Check all that apply I do not have problems meeting my needs Has lack of transportation k ept you from medical appointments, meetings, work or from getting things needed for daily living? No How often do you see or talk to people that you care about and feel close to? (For example: talking to friends on the phone, visiting friends or family, going to restorationist or club meetings) More than 5 times a week How stressed are you? Stress is when someone feels tense, nervous, anxious, or can't sleep at night because their mind is troubled A little bit In the past year have you sp ent more than 2 nights in a row in a assisted, penitentiary, jail center, or juvenile correctional facility? No Are you a refugee? No What country are you from? [place] Do you feel physically and e motionally safe where you currently live? Yes In the past year, have you b een afraid of your partner or ex-partner? No PRAPARE Score: 2 Drug/Alcohol: Social Info Question Answer Notes AUDIT-C (Standard) Did you have a drink containing alcohol in the past year? Yes How often did you have a drink containing alcohol in the past year? Daily or almost daily (4 points) How many drinks did you have on a typical day when you were drinking in the past year? 1 or 2 drinks (0 point) How often did you have six or more drinks on one occasion in the past year? Less than monthly (1 point) Points 5 Interpretation Positive OPIOID Risk Tool (2018 Edition) Family Hx Alcohol? No Family Hx Illegal Drugs? No Family Hx Rx Drugs? No Personal Hx Alcohol? No Personal Hx Illegal Drugs? No Personal Hx Rx Drugs? No Age between 16-45 years? No History of Preadolescent Sexual Abuse? No ADD, OCD, Bipolar, Schizophrenia? No Depression? No TOTAL SCORE 0 Risk Level for Opioid Use low Tobacco Use: Social Info Question Answer Notes Tobacco Control (Standard) Tobacco use: Nonsmoker Additional Findings: Tobacco non-user Current no nsmoker Additional Details Category Social Info Options Details Miscellaneous: Exercise: gym Marital status: Occupation: retired, banking in finance Children: 1 Caffeine: 3-4 cups per day Section Notes: TOB: Never smoked EtOH: 2 -3 drinks Exercise - 4 miles walking, weight lifting. TOB: Never smoked EtOH: 2 -3 drinks Exercise - 4 miles walking, weight lifting. TOB: Never smoked EtOH: 2 -3 drinks Exercise - 4 miles walking, weight lifting. TOB: Never smoked EtOH: 2 -3 drinks Exercise - 4 miles walking, weight lifting. TOB: Never smoked EtOH: 2 -3 drinks Exercise - 4 miles walking, weight lifting. TOB: Never smoked EtOH: 2 -3 drinks Exercise - 4 miles walking, weight lifting. TOB: Never smoked EtOH: 2 -3 drinks Exercise - 4 miles walking, weight lifting. TOB: Never smoked EtOH: 2 -3 drinks Exercise - 4 miles walking, weight lifting. TOB: Never smoked EtOH: 2 -3 drinks Exercise - 4 miles walking, weight lifting. TOB: Never smoked EtOH: 2 -3 drinks Exercise - 4 miles walking, weight lifting. TOB: Never smoked EtOH: 2 -3 drinks Exercise - 4 miles walking, weight lifting. TOB: Never smoked EtOH: 2 -3 drinks Exercise - 4 miles walking, weight lifting. TOB: Never smoked EtOH: 2 -3 drinks Exercise - 4 miles walking, weight lifting. Problems Problem Type SNOMED Code ICD Code Onset Dates Problem Status W/U Status Risk Notes Problem Chronic pain (93141287) Other chronic pain (G89.29) Active confirmed Problem Gastroesophageal reflux disease (924654342) GERD without esophagitis (K21.9) Active confirmed Problem Vitamin D deficiency (78840105) Vitamin D deficiency (E55.9) Active confirmed Problem Anxiety (09349602) Anxiety (F41.9) Active confi rmed Problem Osteoarthritis of knee (780807881) Primary osteoarthritis of left knee (M17.12) Active confirmed Problem Primary hypertension (14388599) Primary hypertension (I10) Active confirmed Problem Polycythemia (903655606) Polycythemia (D75.1) Active confirmed Problem Dyslipidemia (574991161) Dyslipidemia (E78.5) Active confirmed Problem Benign prostatic hypertrophy without outflow obstruction (884692630) Benign prostatic hyperplasia, unspecified whether lower urinary tract symptoms present (N40.0) Active confirmed Problem Sleep apnea (81734848) Sleep apnea in adult (G47.30) Active confirmed Problem Lymphopenia (63977752) Lymphopenia (D72.810) Active confirmed Problem Family history of ischemic heart disease (362510702) Family hx of aortic aneurysm (Z82.49) Active confirmed Vital Signs Heart Rate 85 /min 08/20/2024 Temperature 97.7 degrees Fahrenheit 08/20/2024 Oximetry 98 % 08/20/2024 Blood pressure diastolic 74 mm Hg 08/20/2024 Height 71 in 08/20/2024 Blood pressure systolic 110 mm Hg 08/20/2024 Weight 190 lbs 08/20/2024 BMI 26.5 kg/m2 08/20/2024 Procedures Procedure Date Ordered Date Performed Result Body Sit e CCM Care Plan 07/24/2024 undefined Advanced Care Planning 08/20/2024 undefined Encounters Encounter Location Date Provider Diagnosis [facility] [address] [address] 05/24/2024 Lois Michele Left forearm pain M79.632 ; Hematoma of left forearm S50.12XA ; Primary hypertension I10 ; Dyslipidemia E78.5 ; Hair loss L65.9 ; GERD without esophagitis K21.9 ; Low testosterone R79.89 ; Screening PSA (prostate specific antigen) Z12.5 ; Polycythemia D75.1 and Impaired fasting glucose R73.01 [facility] [address] [address] 06/14/2024 Karla Mills Left forearm pain M79.632 ; Hematoma of left forearm S50.12XA ; Primary hypertension I10 ; Dyslipidemia E78.5 ; Hair loss L65.9 ; GERD without esophagitis K21.9 ; Low testosterone R79.89 ; Screening PSA (prostate specific antigen) Z12.5 ; Polycythemia D75.1 ; Impaired fasting glucose R73.01 ; Anxiety F41.9 and Vitamin D deficiency E55.9 [facility] [address] [place] [address] 07/24/2024 Lois Bautista Primary hypertension I10 ; Dyslipidemia E78.5 ; Hair loss L65.9 ; GERD without esophagitis K21.9 ; Low testosterone R79.89 ; Screening PSA (prostate specific antigen) Z12.5 ; Polycythemia D75.1 ; Impaired fasting glucose R73.01 ; Lymphopenia D72.810 and Anxiety F41.9 [facility] [address] [place] [address] 08/20/2024 Lois Bautista Encounter for genera l adult medical examination without abnormal findings Z00.00 ; Alcohol screening Z13.89 ; Colon cancer screening Z12.11 and Body mass index (BMI) greater than 25 Z78.9 [facility] [address] [place] [address] 01/09/2024 Lois Bautista [facility] [address] [place] [address] 02/02/2024 Lois Bautista [facility] [address] [place] [address] 02/05/2024 Lois Bautista GERD without esophagitis K21.9 [facility] [address] [place] [address] 05/28/2024 Lois Bautista [facility] [address] [place] [address] 06/20/2024 Lois Bautista [facility] [address] [place] [address] 07/29/2024 Lois Bautista Lymphopenia D72.810 [facility] [address] [place] [address] 08/20/2024 Lois Bautista Anxiety F41.9 [facility] [address] [place] [address] 11/12/2024 Lois Bautista [facility] [address] [place] [address] 07/24/2024 Lois Bautista [facility] [address] [place] [address] 07/25/2024 Lois Michele [facility] [address] [place] [address] 10/30/2024 Lois Bautista Assessments Encounter Date Diagnosis (ICD Code) Assessment Notes Treatment Notes Treatment Clinical Notes Section Notes 05/24/2024 Left forearm pain (ICD-10 - M79.632) Ice over hematoma. He will get XRAY and US done Has apt with Dr. To, please keep FU if worsens by monday05/24/2024 Hematoma of left forearm (ICD-10 - S50.12XA) 06/14/2024 Left forearm pain (ICD-10 - M79.632) Ice over hematoma. He will get XRAY and US done Has apt with Dr. To, please keep FU if worsens by monday06/14/2024 Hematoma of left forearm (ICD-10 - S50.12XA) 02/05/2024 GERD without esophagitis (ICD-10 - K21.9) 08/20/2024 Anxiety (ICD-10 - F41.9) 08/20/2024 Encounter for general adult medical examination without abnormal findings (ICD-10 - Z00.00) 07/29/2024 Lymphopenia (ICD-10 - D72.810) 07/24/2024 Primary hypertension (ICD-10 - I10) 07/24/2024 Dyslipidemia (ICD-10 - E78.5) 07/24/2024 Hair loss (ICD-10 - L65.9) 08/20/2024 Alcohol screening (ICD-10 - Z13.89) 06/14/2024 Primary hypertension (ICD-10 - I10) 05/24/2024 Primary hypertension (ICD-10 - I10) 06/14/2024 Dyslipidemia (ICD-10 - E78.5) 08/20/2024 Colon cancer screening (ICD-10 - Z12.11) Please Give Stool Cards 07/24/2024 GERD without esophagitis (ICD-10 - K21.9) 07/24/2024 Low testosterone (ICD-10 - R79.89) Dr. Ilia Chance - [facility] [place] 08/20/2024 Body mass index (BMI) greater than 25 (ICD-10 - Z78.9) 05/24/2024 Dyslipidemia (ICD-10 - E78.5) 06/14/2024 Hair loss (ICD-10 - L65.9) 06/14/2024 GERD without esophagitis (ICD-10 - K21.9) 05/24/2024 Hair loss (ICD-10 - L65.9) 07/24/2024 Screening PSA (prostate specific antigen) (ICD-10 - Z12.5) 07/24/2024 Polycythemia (ICD-10 - D75.1) On testosterone, follows Urology 06/14/2024 Low testosterone (ICD-10 - R79.89) Dr. Ilia Chance - [facility] [place] 05/24/2024 GERD without esophagitis (ICD-10 - K21.9) 05/24/2024 Low testosterone (ICD-10 - R79.89) [facility] Screening PSA (prostate specific antigen) (ICD-10 - Z12.5) 07/24/2024 Impaired fasting glucose (ICD-10 - R73.01) Moniter 06/14/2024 Polycythemia (ICD-10 - D75.1) Urology is changing his testosterone and will FU on CBC. Pt understands risks of elevated HH and will follow urology recs to get it controlled again. 05/24/2024 Screening PSA (prostate specific antigen) (ICD-10 - Z12.5) 07/24/2024 Lymphopenia (ICD-10 - D72.810) 07/24/2024 Anxiety (ICD-10 - F41.9) 05/24/2024 Polycythemia (ICD-10 - D75.1) Urology is changing his testosterone and will FU on CBC. Pt understands risks of elevated HH and will follow urology recs to get it controlled again. 06/14/2024 Impaired fasting glucose (ICD-10 - R73.01) 04/2023 - A1c 5.4 05/24/2024 Impaired fasting glucose (ICD-10 - R73.01) 04/2023 - A1c 5.4 06/14/2024 Anxiety (ICD-10 - F41.9) 06/14/2024 Vitamin D deficiency (ICD-10 - E55.9) 08/20/2024 Other Reviewed existing advanced directives, already on the chart, with patient. If patient failed to sign the prior directives, failed to bring in the (at home) advanced directives for our charting- I again asked patient and any family member to do so. If we already have advanced directives on our chart, I asked patient if there have been any changes as recommended by CMS. I asked any new changes to advanced directives to be brought in for us to scan on the chart. Patient agreed. Plan Of Treatment Pending Test Test Name Order Date X ray : Forearm, left 05/24/2024 X ray : Elbow, left 05/24/2024 Ultrasound : Doppler : Veins Arm Left MAGNESIUM 06/14/2024 Fecal Immunoassay Test (FIT) (Medicare) 08/20/2024 Vitamin D Total 06/14/2024 Future Test Test Name Order Date HEMOGLOBIN A1c 07/24/2025 TSH W/REFLEX TO FT4 07/24/2025 CBC w/Differential (Peripheral Smear) Lipid Panel 07/24/2025 PSA, Total 07/24/2025 CMP 07/24/2025 Next Appt Details Provider Name:Loisceci Bautista, 07/28/2025 02:15:00 PM, [address], [place], [address], Provider Name:Lois Michele, 08/19/2025 11:30:00 AM, [address], [place], [address], Insurance Providers Payer Name Payer Address Payer Phone Subscriber Number Group Number Insured Name Patient Relationship to Insured Coverage Start Date Coverage End Date Medicare of [place] / [facility] [address] [address] [place] [address] [phone] [id number] Mushtaq Morfin Self - patient is the insured 9 [facility] [employer] [address] [place] [address] [id number] Mushtaq Morfin Self - patient is the insured Medical (General) History Medical History History ICD Code Hypertension I10 Hypercholesterolemia E78.00 Hair Loss Surgical History Surgery Date(Month/Year) Cholecystectomy 2010 Left MCL repair Upper Eus 2013 Left Carpal tunnel 2017 Upper endoscopy acid reflux 2018 Right Carpal tunnel 09/10/2022 Hospitalization History Reason Date(Month/Year) See Surgical history
--- OUTSIDE RECORDS SUMMARY | 2024-12-11 09:49 | XMS_ITS | Clinical Summary ---
Author Organization [facility] Address [address] [place] [address] Phone Care Team Providers Care Administrative Assistant Name Role Phone Klaus Spring MD Primary Care Provider [phone] Social History Tobacco Use Types Packs/Day Years Used Date Smoking Tobacco: Never Assessed Sex and Gender Information Value Date Recorded Sex Assigned at Not on file Legal Sex Male 3:00 PM CDT Gender Identity Not on file Sexual Orientation Not on file Plan of Treatment Health Maintenance Due Date Last Done Comments DTAP/TDAP/TD VACCINES (1 - Tdap) 1972 COLORECTAL SCREENING 1998 Colorectal Cancer Screening 1998 FIT-DNA Q 3 years 1998 FIT/FOBT Q 1 year 1998 Flex Sig/CT Colonography Q 5 years 1998 PNEUMOCOCCAL VACCINE 50+ YEARS (1 of 1 - PCV) 07/19/19 04 ZOSTER VACCINE (1 of 2) 2003 INFLUENZA VACCINE (#1) 2025 RSV VACCINE (60+ or ) (1 - 1-dose 75+ series) 2028 Care Teams Administrative Assistant Relationship Specialty Start Date End Date Klaus Spring MD [address] [place] [id number] PCP - General Internal Medicine 09/13/18
--- OUTSIDE RECORDS SUMMARY | 2024-12-11 09:49 | XMS_ITS | Clinical Summary ---
Author Organization [facility] Address [address] [place] [address] Care Team Providers Care Employment Manager Name Role Phone Klaus Spring MD Primary Care Provider Non-Staff, Provider Unavailable Unavailable Rajani Grullon MD Unavailable Allergies Active Allergy Reactions Criticality Noted Date Comments Perflutren Lipid Microsphere Rash Low 023 Hypotension Doxycycline Unknown 08/29/2017 Medications lisinopril 10 MG tablet Take 1 tablet (10 mg total) by mouth daily. Active Probiotic Product (PRO-BIOTIC BLEND OR) Take by mouth daily. Active Glucosamine Sulfate 1500 MG Pack Take 1,500 mg by mouth. Active celecoxib 200 MG capsule Take 1 capsule (200 mg total) by mouth as needed. 1 Active finasteride 1 MG tablet Take 1 tablet (1 mg total) by mouth daily. Active Zinc 100 MG Tab Take 1 tablet by mouth daily. Active aspirin EC (ECOTRIN) 81 MG tablet Take 1 tablet (81 mg total) by mouth daily. Active omeprazole (PRILOSEC) 20 MG capsule Take 1 capsule (20 mg total) by mouth daily. Active XYOSTED 75 MG/0.5ML Solution Auto-injector INJECT 75MG SUBCUTANEOUSLY ONCE A WEEK 3 Active zolpidem (AMBIEN) 10 MG tablet Take 1 tablet (10 mg total) by mouth nightly as needed for Sleep. Active rosuvastatin (CRESTOR) 20 MG tablet Take 1 tablet (20 mg total) by mouth nightly at bedtime. at bedtime 90 tablet 3 3 Active Active Problems Problem Noted Date Diagnosed Date Coronary artery disease invo lving te-[place] coronary artery of [place] heart without angina pectoris 09/26/2019 Dyslipidemia associated with type 2 diabetes mellitus ([facility]) 09/26/2019 Palpitations 09/24/2017 HENNA on CPAP 09/24/2017 Dyspnea, unspecified type 09/24/2017 HTN (hypertension) Resolved Problems Problem Noted Date Diagnosed Date Resolved Date Snores 09/24/2017 Family History Medical History Relation Comments Arthritis Mother Hypertension Mother Relation Status Comments Father Mother Social History Tobacco Use Types Packs/Day Years Used Date Smoking Tobacco: Never Smokeless Tobacco: Never Tobacco Cessation:Counseling Given: Not Answered Alcohol Use Standard Drinks/Week Comments Yes 16.7 (1 standard drink = 0.6 oz pure alcohol) 10 per week Sex and Gender Information Value Date Recorded Sex Assigned at Not on file Legal Sex Male 8:43 AM CDT Gender Identity Not on file Sexual Orientation Not on file Last Filed Vital Signs Vital Sign Reading Time Taken Comments Blood Pressure 118/80 04/15/2024 2:30 PM PANTS CLOSER Pulse 88 04/15/2024 2:30 PM PANTS CLOSER Temperature - - Respiratory Rate 16 04/15/2024 2:30 PM PANTS CLOSER Oxygen Saturation 99% 04/15/2024 2:30 PM PANTS CLOSER Inhaled Oxygen Concentration - - Weight 90.3 kg (199 lb) 04/15/2024 2:30 PM PANTS CLOSER Height 180.3 cm (5' 11) 04/15/2024 2:30 PM PANTS CLOSER Body Mass Index 27.75 04/15/2024 2:30 PM PANTS CLOSER Plan of Treatment Upcoming Encounters Date Type Department Care Team (Late st Contact Info) Description 04/15/2025 10:30 AM PANTS CLOSER Appoint[address] [facility] [address] [place] [address] Rajani Grullon MD [address] [place], [place] [address] 04/28/2025 2:30 PM PANTS CLOSER Office Visit [facility] [place] [address] Rajani Grullon MD [address] [place] [address] Health Maintenance Due Date Last Done Comments ASCVD Statin 1953 Colorectal Cancer Screening Colonoscopy (10 Years) 1953 Kidney Health Evaluation 1953 Diabetes: Retinopathy Eye Exam 1971 Hepatitis C 1971 DTaP, Tdap and Td Vaccines ( 1 - Tdap) 1972 RSV Immunization or 60+ Years (1 - Risk 60-74 years 1-dose series) 2013 Annual Medicare Wellness Visit 2018 Pneumococcal Vaccine: 50+ Years (2 of 2 - PPSV23) 01/21/2019 11/26/2018 COVID-19 Vaccine ( - 2023-2 5 season) 2024 ASCVD LDL 05/03/2024 05/03/2023, 07/16/2021, 02/13/2020 Lipid Panel 05/03/2024 05/03/2023, 07/16/2021, 02/13/2020 Hemoglobin A1C 10/03/2024 04/04/2024, 05/03/2023 Zoster Vaccines Completed 2018, 04/20/2018 Meningococcal B Vaccine Aged Out No l onger eligible based on patient's age to complete this topic Meningococcal Vaccine Aged Out No sunny daron eligible based on patient's age to complete this topic RSV Immunizations Under 20 Months Aged Out No longer eligible b ased on patient's age to complete this topic Procedures Procedure Name Priority Date/Time Associated Diagnosis Comments HEMOGLOBIN, GLYCOSYLATED Routine 04/04/2024 LIPID PANEL Routine 05/03/2023 from Last 3 Months or Most Recently Relevant to Health Maintenance Results * HEMOGLOBIN, GLYCOSYLATED (04/04/2024) HGB A1C 5.6 % Narrative Resulting Agency Comment [facility], [place], [place]/[facility], Ilia Sheridan us Default History Genericprovider LABORATORY Final Result * LIPID PANEL (05/03/2023) CHOLESTEROL 125 TRIGLYCERIDES 161 HDL 47 LDL (CALCULATED) 54 CHOL/HDL RATIO 2.7 NON HDL CHOLESTEROL 78 Narrative Resulting Agency Comment [facility], [place], [place]/[facility], Ilia Sheridan us Default History Genericprovider LABORATORY Final Result from Last 3 Months or Most Recently Relevant to Health Maintenance Insurance MEDICARE [employer] Advance Directives Documents on File Type Date Recorded Patient Making Machine Catcher Expl anation Advance Directives and Living Will 05/26/2020 2:26 PM 04/25/2009 - P[facility]O.A. for [facility] Morfin Care Teams Employment Manager Relationship Specialty Start Date End Date Klaus Spring MD [address] [place] [address] PCP - General INTERNAL MEDICINE 08/25/17 Non-Staff, Provider Physician FAMILY PRACTICE 03/08/23 Rajani Grullon MD [address] [place] [address] Consulting Physician CARDIOVASCULAR DISEASE 10/05/23
--- OUTSIDE RECORDS SUMMARY | 2024-12-11 09:49 | XMS_ITS | Encounter Summary ---
Author Organization [facility] Address [address] [place] [address] Care Team Providers Care Call Center Consultant Name Role Phone Klaus Spring MD Primary Care Provider [phone] Reza Rosales MD Unavailable [phone] Non-Staff, Provider Unavailable Unavailable Rajani Grullon MD Unavailable Encounter Details Date Type Department Care Team (Late st Contact Info) Description 08/03/2021 Abstract [facility] [address] [place] [address] Reza Rosales MD [address] [place] [address] Social History Tobacco Use Types Packs/Day Years Used Date Smoking Tobacco: Never Smokeless Tobacco: Never Alcohol Use Standard Drinks/Week Comments Yes 0 (1 standard drink = 0.6 oz pur e alcohol) 2 glasses wine 4 days weekly Sex and Gender Information Value Date Recorded Sex Assigned at Not on file Legal Sex Male 8:43 AM CDT Gender Identity Not on file Sexual Orientation Not on file documented as of this encounter Plan of Treatment Upcoming Encounters Date Type Department Care Team (Late st Contact Info) Description 04/15/2025 10:30 AM DRUG DISCOVERY INFORMATICS SPECIALIST Appointment [facility] [address] [place] [address] Rajani Grullon MD [address] [place], [place] [phone] 04/28/2025 2:30 PM DRUG DISCOVERY INFORMATICS SPECIALIST Office Visit [facility] [address] [place] [phone] Rajani Grullon MD [address] [place], [place] [phone] documented as of this encounter Procedures Procedure Name Priority Date/Time Associated Diagnosis Comments CMP (ABSTRACTED LAB) Routine 07/16/2021 LIPID PANEL Routine 07/16/2021 documented in this encounter Results * LIPID PANEL (07/16/2021) CHOLESTEROL 140 <200 HDL 49 >or=40 TRIGLYCERIDES 145 <150 NON HDL CHOLESTEROL 91 <130 CHOL/HDL RATIO 2.9 <5.0 LDL (CALCULATED) 68 07/16/2021 us Doc [facility] Abstract LABORATORY Final Result * (ABNORMAL) CMP (ABSTRACTED LAB) (07/16/2021) SODIUM S/P/B 140 135 - 146 POTASSIUM S/P/B 4.4 3.5 - 5.3 CHLORIDE S/P/B 103 98 - 110 CO2 27 20 - 32 BUN 18 7 - 25 CREATININE S/P/B 0.98 0.7 - 1.25 EGFR AFR. AMER. 92(A) <=90 EGFR NON-AFR. AMER. 79 <=90 CALCIUM S/P/B 9.8 8.6 - 10.3 GLUCOSE 98 65 - 99 mg/dL TOTAL PROTEIN S/P/B 7.2 6.1 - 8.1 ALBUMIN S/P/B 4.5 3.6 - 5.1 AST 21 10 - 35 ALT 25 9 - 46 ALKALINE PHOSPHATASE S/P/B 53 35 - 144 BILIRUBIN TOTAL S/P/B 0.8 0.2 - 1.2 07/16/2021 us Doc [facility] Abstract LAB-OUTSIDE/ABSTRACTED Final Result documented in this encounter Visit Diagnoses Not on filedocumented in this encounter Care Teams Call Center Consultant Relationship Specialty Start Date End Date Klaus Spring MD [address] [place] [address] PCP - General INTERNAL MEDICINE 08/25/17 Reza Rosales MD [address] [place] [address] [facility] CARDIOVASCULAR DISEASE 08/25/17 10/04/23 Non-Staff, Provider Physician FAMILY PRACTICE 03/08/23 Rajani Grullon MD [address] [place] [address] Consulting Physician CARDIOVASCULAR DISEASE 10/05/23 documented as of this encounter
--- OUTSIDE RECORDS SUMMARY | 2024-12-11 09:49 | XMS_ITS | Encounter Summary ---
Author Organization [facility] Address [address] [place] [address] Care Team Providers Care .Net Developer Name Role Phone Klaus Spring MD Primary Care Provider [phone] Reza Rosales MD Unavailable [phone] Non-Staff, Provider Unavailable Unavailable Rajani Grullon MD Unavailable Encounter Details Date Type Department Care Team (Late st Contact Info) Description 07/06/2023 Abstract [facility] [address] [place] [address] Reza Rosales MD [address] [place] [phone] Social History Tobacco Use Types Packs/Day Years Used Date Smoking Tobacco: Never Smokeless Tobacco: Never Alcohol Use Standard Drinks/Week Comments Yes 16.7 [...] st Contact Info) Description 04/15/2025 10:30 AM HEAD SETTER Appointment [facility] [address] [facility] [place] [address] Rajani Grullon MD [address] [place], [place] [address] 04/28/2025 2:30 PM HEAD SETTER Office Visit [facility] [address] [place] [address] Rajani Grullon MD [address] [place] [address] documented as of this encounter Procedures Procedure Name Priority Date/Time Associated Diagnosis Comments HEPATIC FUNCTION PANEL Routine 12/30/2022 CBC (OUTSIDE LAB) Routine 09/23/2022 IRON BINDING TEST Routine 09/23/2022 CBC (OUTSIDE LAB) Routine 07/10/2022 CMP (ABSTRACTED LAB) Routine 07/08/2022 documented in this encounter Results * (ABNORMAL) HEPATIC FUNCTION PANEL (12/30/2022) Pathologist [facility] ALBUMIN S/P/B 1.8(A) 3.6 - 5.1 ALKALINE PHOSPHATASE S/P/B 41 35 - 144 ALT 17 9 - 46 AST 16 10 - 35 BILIRUBIN DIRECT S/P/B 0.2 < or=0.2 BILIRUBIN TOTAL S/P/B 0.7 0.2 - 1.2 TOTAL PROTEIN S/P/B 6.8 6.1 - 8.1 GLOBULIN 2.4 1.9 - 3.7 12/30/2022 us Default History Genericprovider LABORATORY Final Result * IRON BINDING TEST (09/23/2022) Pathologist [facility] IRON BINDING CAPACITY 347 250 - 425 IRON 50 50 - 180 % SATURATION 25 20 - 48 FERRITIN 45 24 - 380 VITAMIN B12 BINDING CAP 324 200 - 1,100 FOLATE 6.8 09/23/2022 us Default History Genericprovider LABORATORY Final Result * CBC (OUTSIDE LAB) (09/23/2022) WBC 5.2 3.8 - 10.8 HGB 17.7 13.2 - 17.1 HCT 52.1 38.5 - 50.0 PLT 249 140 - 400 RBC 5.72 4.20 - 5.80 09/23/2022 us Default History Genericprovider LAB-OUTSIDE/ABST RACTED Final Result * CBC (OUTSIDE LAB) (07/10/2022) WBC 6.3 3.8 - 10.8 HGB 18.6 13.2 - 17.1 HCT 56.1 38.5 - 50.0 PLT 245 140 - 400 RBC 6.20 4.20 - 5.80 07/10/2022 us Default History Genericprovider LAB-OUTSIDE/ABST RACTED Final Result * CMP (ABSTRACTED LAB) (07/08/2022) SODIUM S/P/B 140 135 - 146 POTASSIUM S/P/B 4.8 3.5 - 5.3 CHLORIDE S/P/B 103 98 - 110 CO2 26 20 - 32 BUN 17 7 - 25 CREATININE S/P/B 1.04 0.7 - 1.35 EGFR NON-AFR. AMER. 78 <=90 CALCIUM S/P/B 9.8 8.6 - 10.3 GLUCOSE 85 65 - 99 mg/dL TOTAL PROTEIN S/P/B 7.1 6.1 - 8.1 ALBUMIN S/P/B 4.3 3.6 - 5.1 AST 19 10 - 35 ALT 18 9 - 46 ALKALINE PHOSPHATASE S/P/B 48 35 - 144 BILIRUBIN TOTAL S/P/B 0.8 0.2 - 1.2 GLOBULIN 2.8 1.9 - 3.7 TSH 1.40 0.40 - 4.50 07/08/2022 us Default History Genericprovider LAB-OUTSIDE/ABST RACTED Final Result documented in this encounter Visit Diagnoses Not on filedocumented in this encounter Care Teams .Net Developer Relationship Specialty Start Date End Date Klaus Spring MD [address] [place] [phone] PCP - General INTERNAL MEDICINE 08/25/17 Reza Rosales MD [address] [place] [address] [place] Chancery Clerk CARDIOVASCULAR DISEASE 08/25/17 10/04/23 Non-Staff, Provider Physician FAMILY PRACTICE 03/08/23 Rajani Grullon MD [address] [place] [address] Consulting Physician CARDIOVASCULAR DISEASE 10/05/23 documented as of this encounter
== END 2024-12-11 09:38 | disposition home or self-care (01) ==
LOC: ANHBWCAUD 09:38
PROVIDERS: PCP Internal Medicine; Visit Provider Otolaryngology
DX: H91.91 Unspecified hearing loss, right ear (principal)
CPT/HCPCS: 92557; 92567